=== PATIENT | female | born 2000 | race Caucasian/White ===

== ENCOUNTER → 2023-11-24 10:21 | Outpatient (REF) | payer OTHER, SELFPAY | LOC: RAD 10:21 | PROVIDERS: ATTENDING PHYSICIAN Physician Assistant | DX: E28.2 Polycystic ovarian syndrome (principal); N91.2 Amenorrhea, unspecified; R10.2 Pelvic and perineal pain | CPT/HCPCS: 76830; 76856 ==

== ENCOUNTER 2024-06-10 10:03 | Day surgery (SDC) | payer OTHER, SELFPAY ==
[2024-06-09 22:14] VITALS: BP 145/93
[2024-06-09 22:32] LABS: % Basophils 1.1 % (0-2); % Eosinophils 3.9 % (0-6); % Immature Granulocytes 0.4 % (0-0.5); % Lymphocytes 42.5 % (20.5-51.1); % Neutrophils 43.1 % (42.2-75.2); Absolute Basophils 0.1 10^3/uL (0-0.2); Absolute Eosinophils 0.5 10^3/uL (0-0.7); Absolute Immature Granulocytes 0.1 10^3/uL (0-0.05); Absolute Lymphocytes 5.7 10^3/uL (1.2-3.4); Absolute Monocytes 1.2 10^3/uL (0.1-0.6); Absolute Neutrophils 5.8 10^3/uL (1.4-6.5); Hematocrit 38.8 % (37.0-47.0); Hemoglobin 13.5 g/dL (12.0-16.0); Mean Corp Hgb Conc. 34.8 g/dL (33.0-37.0); Mean Platelet Volume 8.9 fL (7.4-10.4); Nucleated Red Blood Cells % 0 %; Platelet Count 324 10^3/uL (130-400); Red Blood Cell Count 4.36 10^6/uL (4.20-5.40); Red Cell Dist. Width 11.6 % (11.5-14.5); White Blood Cell Count 13.3 10^3/uL (4.8-10.8)
[2024-06-09 22:45] LABS: Lactic Acid 1.8 mmol/L (0.7-2.0)
[2024-06-09 22:50] LABS: HCG, Serum Qualitative Screen Negative
[2024-06-09 22:53] LABS: ALT (SGPT) 48 U/L (0-35); AST (SGOT) 29 U/L (14-36); Albumin 4.6 g/dl (3.5-5.0); Alkaline Phosphatase 58 U/L (38-126); Blood Urea Nitrogen 15 mg/dl (7-17); Calcium 9.7 mg/dl (8.4-10.2); Carbon Dioxide 23 mmol/L (22-30); Chloride 102 mmol/L (98-107); Glucose 169 mg/dl (70-99); Lipase 103 U/L (23-300); Potassium 3.7 mmol/L (3.5-5.1); Sodium 136 mmol/L (135-145); Total Bilirubin 0.2 mg/dl (0.2-1.3); eGFR > 60.00
[2024-06-10] VITALS (14 sets, daily range): BP systolic 117–143; BP diastolic 68–90; BMI 38.8
--- NOTE | 2024-06-10 00:57 | ED.GENMED ---
History of Present Illness
General
Chief Complaint: Abdominal Pain
Time Seen by Provider: 06/10/24 00:35
History of Present Illness
History of Present Illness:
24-year-old female history of PCOS presenting with right lower quadrant abdominal pain starting tonight. Patient reports nausea and vomiting. Patient denies diarrhea. LMP in February 2024. Patient states her periods are irregular. Patient denies
any vaginal discharge. Patient states that abdominal pain radiates in her right groin. Patient denies dysuria or hematuria
Phy Exam
Physical Exam
Physical Exam:
General: Alert, no acute distress
Head: NCAT
Eyes: clear conjunctiva
Neck: supple
Cardiac: regular rate and rhythm, no murmur
Lungs: clear to auscultation bilaterally. No wheezes, rales, or rhonchi. Speaking full unlabored sentences. No respiratory distress.
Abdomen: soft, nondistended right lower quadrant tenderness palpation. No rebound or guarding. Negative Rovsing
MSK: no lower extremity edema bilaterally. No deformity
Skin: warm, dry
Neuro: Alert and oriented x3. no focal deficits
Course
Orders/Labs/Results
Orders:
Orders
06/09/24 22:17
Test Result ONCE
06/09/24 22:24
Complete Blood Count/With Diff Urgent
Comprehensive Metabolic Panel Urgent
HCG, Serum Qualitative Screen Urgent
Lactate Level [Lactic Acid] Urgent
Lipase Urgent
06/10/24 00:54
CT Abd/Pel (IV only)-DH only Urgent
Comment: changed to iv only per attending.
Reason For Exam: rlq tenderness
Iohexol [Omnipaque] See Protocol PO NOW STA
Ketorolac [Toradol] 15 mg IV NOW STA
US Pelvis Only (non-obstetric) Urgent
Reason For Exam: rlq tenderness, hx pcos
06/10/24 00:59
0.9% Sodium Chloride 1000 ml [Nss] 1,000 ml IV BOLUS
Ondansetron Injectable [Zofran] 4 mg IV NOW STA
06/10/24 02:31
UA Reflex to Culture [Urinalysis Reflex To Culture] Urgent
Date Specimen was Collected: 06/10/24
Time Specimen was Collected: 01:01
Abnormal Lab Results
06/09/24
22:24
WBC 13.3 H 10^3/uL
(4.8-10.8)
Abs Immat Gran (auto) 0.1 H 10^3/uL
(0-0.05)
Absolute Lymphs (auto) 5.7 H 10^3/uL
(1.2-3.4)
Absolute Monos (auto) 1.2 H 10^3/uL
(0.1-0.6)
Creatinine 0.5 L mg/dL
(0.6-1.0)
Glucose 169 H mg/dl
(70-99)
ALT 48 H U/L
(0-35)
06/09/24 22:24
06/09/24 22:24
Vital Signs
Initial and Last Documented VS:
Initial Vital Signs
Temp Pulse Resp BP Pulse Ox
98.5 F 97 20 145/93 97
06/09/24 22:14 06/09/24 22:14 06/09/24 22:14 06/09/24 22:14 06/09/24 22:14
Last Documented Vital Signs
Temp Pulse Resp BP Pulse Ox
98.5 F 97 20 136/90 98
06/09/24 22:14 06/09/24 22:14 06/09/24 22:14 06/10/24 02:31 06/10/24 02:31
MDM/Problems Addressed
Differential Diagnosis Includes:
Appendicitis, ovarian torsion, gastroenteritis, diverticulitis, UTI
MDM/Problems Addressed:
UA negative for UTI. Mild leukocytosis possibly from vomiting. CT abdomen/pelvis concerning for right adnexal mass likely representing the enlarged right ovary measuring approximately 7.4 x 7.1 x 6.3 cm concerning for torsion. US pelvis shows
right ovarian torsion. Discussed with Dr. Vera, PRIMARY CARE PROVIDER, who will take pt to OR for surgical intervention.
*Critical Care Note
Total Time (30-74mins, 75-104mins- exclusive of procedures): Not Applicable
ED Attending Note
-
Portions of this chart may have been created with voice recognition software.� Occasional wrong word or��sound alike� substitutions may have occurred due to the inherent limitations of voice recognition software.
Discharge Plan
Departure
Patient Disposition: Admit
Date of Disposition: 06/10/24
Time of Disposition: 03:08
Admit to: OR
Admit to doctor: Chuy
Presentation/result/management discussed w/ accepting MD/DO: PRIMARY CARE PROVIDER
Discharge Problem:
Torsion of right ovary
Referrals:
Dakota Fink MD [Family Provider] -
Interventions
Interventions:
*General Assessment Last Done: 06/09/24 22:14
*Neglect/Abuse Screening Last Done: 06/10/24 00:57
ED- Fall Risk Assessment Last Done: 06/10/24 00:57
*ED COVID-19 Vaccine History Last Done: 06/10/24 00:57
PO-Jwybjl-Pkandoklvw Assessment Last Done: 06/10/24 00:57
Discharge Date and Time
Print Language: TELUGU
[2024-06-10] MEDS: NSS 1000 IV (01:10)
[2024-06-10] MEDS: TORADOL 15 MG IV (01:13)
[2024-06-10] MEDS: ZOFRAN 4 MG IV (01:13)
[2024-06-10 02:40] LABS: Urine Albumin Negative (Neg - Trace); Urine Bilirubin Negative (Negative); Urine Character Clear (Clear); Urine Color Yellow; Urine Glucose Negative (Negative); Urine Ketone Negative (Negative); Urine Leukocyte Negative (Negative); Urine Nitrite Negative (Negative); Urine Occult Blood Negative (Negative); Urine Urobilinogen Negative (Neg - 1+)
[2024-06-10] MEDS: LOVENOX 40 MG SC (10:31)
== END 2024-06-10 12:38 | disposition home or self-care (01) ==
LOC: SDS 10:03
PROVIDERS: ATTENDING PHYSICIAN Obstetrics & Gynecology Gynecology; EMERGENCY PHYSICIAN Emergency Medicine; FAMILY PHYSICIAN Family Medicine
DX: N83.511 Torsion of right ovary and ovarian pedicle (principal)
CPT/HCPCS: 58661; 88305; 74177; 76856; 80053; 81003; 83605; 83690; 84703; 85025; 86850; 86900; 86901; C1776; Q9967